=== PATIENT | female | born 1965 | race Caucasian/White ===

== ENCOUNTER 2018-11-23 12:50 | Outpatient (CLI) | payer BC ==
--- NOTE | 2018-11-24 11:55 | MMO ---
Bilateral MAMMO Bilat Screen [facility]. CLINICAL HISTORY: Patient is 53 years old and is seen for screening. The patient has the following family history of breast cancer: mother, 60-65. The patient has no personal history of cancer. VIEWS: The views performed were: bilateral craniocaudal with tomosynthesis and bilateral mediolateral oblique with tomosynthesis. FILMS COMPARED: The present examination has been compared to prior imaging studies performed at [facility] on 11/21/2012, 02/27/2014, 01/13/2016 and 04/05/2017, and at [facility] on 01/19/2010. MAMMOGRAM FINDINGS: The breasts are extremely dense, which may lower the sensitivity of mammography. There are stable benign appearing calcifications seen in both breasts. There are no suspicious masses, suspicious calcifications, or new areas of architectural distortion. IMPRESSION: THERE IS NO MAMMOGRAPHIC EVIDENCE OF MALIGNANCY. A ROUTINE FOLLOW-UP MAMMOGRAM IN 1 YEAR IS RECOMMENDED. THE RESULTS OF THIS EXAM WERE SENT TO THE PATIENT. ACR BI-RADS Category 2 - Benign finding MAMMOGRAPHY NOTE: 1. A negative mammogram report should not delay a biopsy if a dominant of clinically suspicious mass is present. 2. Approximately 10% to 15% of breast cancers are not detected by mammography. 3. Adenosis and dense breasts may obscure an underlying neoplasm.
== END 2018-11-23 12:51 | disposition home or self-care (01) ==
LOC: BICMAMMO 12:50
PROVIDERS: ATTEND Nurse Practitioner Family
DX: Z12.31 Encounter for screening mammogram for malignant neoplasm of breast (principal); Z80.3 Family history of malignant neoplasm of breast
CPT/HCPCS: 77063; 77067

== ENCOUNTER 2020-03-18 13:09 | Outpatient (CLI) | payer BC ==
--- NOTE | 2020-03-18 13:32 | MMO ---
Bilateral MAMMO Bilat Screen [facility]. CLINICAL HISTORY: Patient is 54 years old and is seen for screening. The patient has the following family history of breast cancer: mother, 60-65. The patient has no personal history of cancer. VIEWS: The views performed were: bilateral craniocaudal with tomosynthesis and bilateral mediolateral oblique with tomosynthesis. FILMS COMPARED: The present examination has been compared to prior imaging studies performed at [facility] on 02/27/2014, 01/13/2016, 04/05/2017 and 11/23/2018. This study has been interpreted with the assistance of computer-aided detection. MAMMOGRAM FINDINGS: The breasts are heterogeneously dense, which could obscure a lesion on mammography. There are stable benign appearing calcifications seen in both breasts. There are no suspicious masses, suspicious calcifications, or new areas of architectural distortion. IMPRESSION: THERE IS NO MAMMOGRAPHIC EVIDENCE OF MALIGNANCY. A ROUTINE FOLLOW-UP MAMMOGRAM IN 1 YEAR IS RECOMMENDED. THE RESULTS OF THIS EXAM WERE SENT TO THE PATIENT. ACR BI-RADS Category 2 - Benign finding MAMMOGRAPHY NOTE: 1. A negative mammogram report should not delay a biopsy if a dominant of clinically suspicious mass is present. 2. Approximately 10% to 15% of breast cancers are not detected by mammography. 3. Adenosis and dense breasts may obscure an underlying neoplasm. Reported by: RAMON HERNANDEZ MD Electonically Signed: [id number]
== END 2020-03-18 13:10 | disposition home or self-care (01) ==
LOC: BICMAMMO 13:09
PROVIDERS: ATTEND Nurse Practitioner Family
DX: Z12.31 Encounter for screening mammogram for malignant neoplasm of breast (principal); Z80.3 Family history of malignant neoplasm of breast
CPT/HCPCS: 77063; 77067

== ENCOUNTER 2022-03-03 09:32 | Inpatient (IN) | payer BC ==
[~2022-03-03 09:32] MED LIST: ISOVUE-370 76%-LOCM 1 ML ONE
[2022-03-03 10:09] LABS: Hemoglobin 8.8 g/dL (12.0-16.0); Mean Corpuscular HGB CONC 28.7 g/dL (32.0-36.0); Mean Corpuscular Hemoglobin 21.6 pg (27.0-31.0); Mean Corpuscular Volume 75.3 fL (78.0-98.0); Mean Platelet Volume 11.3 fL (7.4-10.4); Platelet Count 395 thou/uL (130-400); RBC Distribution Width 26.1 % (11.5-14.5); Red Blood Cell (RBC) Count 4.06 mill/uL (4.20-5.40); White Blood Cell (WBC) Count 20.7 thou/uL (4.8-10.8)
[2022-03-03] MEDS ORDERED: Acetaminophen 500 MG TAB ONE (10:11)
[2022-03-03 10:24] LABS: ALT (SGPT) 11 U/L (8-55); AST (SGOT) 13 U/L (5-34); Albumin 3.9 g/dL (3.5-5.0); Alkaline Phosphatase 120 U/L (40-110); Anion Gap 14 mmol/L (10-20); BUN (Urea Nitrogen) 13 mg/dL (9.8-20.1); Bilirubin, Total 0.7 mg/dL (0.2-1.2); Calc. Creatinine Clearance 0 mL/min (70-130); Calcium 9.5 mg/dL (7.8-10.44); Carbon Dioxide 23 mmol/L (22-29); Chloride 97 mmol/L (98-107); Estimated GFR 101; Globulin 3.7 g/dL (2.4-3.5); Glucose 119 mg/dL (70-105); Lipase 10 U/L (8-78); Potassium 4.4 mmol/L (3.5-5.1); Protein, Total 7.6 g/dL (6.0-8.3); Sodium 130 mmol/L (136-145)
[2022-03-03 10:35] LABS: Band 11 % (5-11); Hypochromia SLIGHT = 6-15 cells (100X) (0-5/hpf); Lymphocytes 10 % (21-51); MDiff Complete? YES; Microcytosis SLIGHT = 6-15 cells (100X) (0-5/hpf); Monocytes 7 % (0-10); Neutrophil 72 % (42-75); Ovalocytes SLIGHT = 2-5 cells (100X) (0-1/hpf); Platelet Morphology Comment Appears Adequate; Polychromasia SLIGHT = 2-3 cells (100X) (0-2/hpf)
[2022-03-03] MEDS ORDERED: Morphine 4 MG/ML VIAL ONE (10:41)
[2022-03-03] MEDS ORDERED: Piperacillin/Tazobactam 4.5 GM VIAL ONE (10:48)
[2022-03-03 12:28] LABS: SARS-CoV-2 NAA Rapid Test Not Detected (NotDetected)
[2022-03-03] MEDS ORDERED: Cyclobenzaprine 10 MG TAB PO PRN (13:13)
[2022-03-03] MEDS ORDERED: traMADol HCl 50 MG TAB PO PRN (13:16)
[2022-03-03 14:41] VITALS: BMI 26.6
[2022-03-03] MEDS: Sodium Chloride 0.9% 1,000 ML IV SCH (15:09)
[2022-03-03] MEDS: Acetaminophen 325 MG TAB PO SCH ×2 (15:27→22:23)
[2022-03-03] MEDS ORDERED: Morphine 2 MG/ML VIAL SLOW IVP PRN (15:41)
[2022-03-03] MEDS ORDERED: Morphine 2 MG/ML VIAL SLOW IVP SCH (16:00)
[2022-03-03] MEDS ORDERED: Piperacillin/Tazobactam 3.375 GM VIAL ONE ×2 (17:18→20:13)
[2022-03-03] MEDS ORDERED: Sodium Chloride 0.9% 0 ML ONE (17:18)
[2022-03-03] MEDS ORDERED: fentaNYL Citrate/PF 100 MCG/2 ML SYRINGE ONE (17:51)
[2022-03-03] MEDS ORDERED: Midazolam HCl 2 mg/2 ml Vial ONE (17:51)
[2022-03-03] MEDS ORDERED: Acyclovir 400 mg Tablet PO PRN (18:28)
[2022-03-03] MEDS ORDERED: Gabapentin 100 MG CAP PO PRN (18:28)
[2022-03-03] MEDS ORDERED: Morphine 2 MG/ML VIAL ONE ×3 (18:29→20:22)
[2022-03-03] MEDS ORDERED: Sodium Chloride 0.9% 100 ML ONE (20:13)
[2022-03-03] MEDS ORDERED: Zolpidem Tartrate 5 MG TAB PO SCH (21:00)
[2022-03-03] MEDS ORDERED: Senokot S 8.6-50 MG TAB PO SCH (21:00)
[2022-03-03] MEDS ORDERED: Bupivacaine 0.25% HCL 30 ML VIAL ONE (21:36)
[2022-03-03] MEDS ORDERED: Lidocaine 1% w/Epinephrine 1:100K 20 ML VIAL ONE (21:36)
[2022-03-03] MEDS ORDERED: Dexamethasone 20 MG/5 ML VIAL ONE (21:50)
[2022-03-03] MEDS ORDERED: Lidocaine 1% PF 5 ML VIAL ONE (21:50)
[2022-03-03] MEDS ORDERED: Ondansetron PF 4 MG/2 ML Vial ONE (21:50)
[2022-03-03] MEDS ORDERED: PROPOFOL 200 MG/20 ML VIAL ONE (21:50)
[2022-03-03] MEDS ORDERED: Glycopyrrolate 0.2 MG/ML 5 ML SYRINGE ONE (21:50)
[2022-03-03] MEDS ORDERED: Ketorolac Tromethamine 30 MG/ML VIAL ONE (21:50)
[2022-03-03] MEDS ORDERED: Rocuronium Bromide 10 MG/ML (10ML VIAL) ONE (21:50)
[2022-03-03] MEDS ORDERED: HYDROmorphone 2 MG/ML VIAL ONE (22:49)
[2022-03-03] MEDS ORDERED: HYDROmorphone 2 MG/ML VIAL SLOW IVP PRN (23:13)
[2022-03-04] MEDS: traMADol HCl 50 MG TAB PO SCH ×4 (00:04→17:43)
[2022-03-04] MEDS: Sodium Chloride 0.9% 1,000 ML IV SCH ×2 (00:06→05:53)
[2022-03-04] MEDS: Acetaminophen 500 MG TAB PO SCH ×4 (01:50→15:05)
[2022-03-04] MEDS: Piperacillin/Tazobactam 3.375 GM in Sodium Chloride 0.9% 100 ML IVPB SCH ×2 (01:50→12:33)
[2022-03-04 06:34] LABS: #Lymphocytes 0.8 thou/uL (1.20-3.40); #Monocytes 0.4 thou/uL (0.11-0.59); #Neutrophils 11.3 thou/uL (1.40-6.50); %Basophils 0.3 % (0.0-1.0); %Eosinophils 0.1 % (0.0-10.0); %Lymphocytes 6.1 % (21.0-51.0); %Monocytes 3.4 % (0.0-10.0); %Neutrophils 90.2 % (42.0-75.0); Hemoglobin 7.6 g/dL (12.0-16.0); Mean Corpuscular HGB CONC 28.2 g/dL (32.0-36.0); Mean Platelet Volume 10.4 fL (7.4-10.4); Platelet Count 330 thou/uL (130-400); RBC Distribution Width 25.4 % (11.5-14.5); Red Blood Cell (RBC) Count 3.44 mill/uL (4.20-5.40); White Blood Cell (WBC) Count 12.5 thou/uL (4.8-10.8)
[2022-03-04] MEDS ORDERED: QUEtiapine Fumarate ER 50 MG TAB PO SCH (09:00)
[2022-03-04] MEDS ORDERED: Senokot S 8.6-50 MG TAB PO SCH (09:00)
[2022-03-04] MEDS ORDERED: Ferrous Sulfate 325 MG TAB PO SCH (09:00)
[2022-03-04] MEDS ORDERED: Ascorbic Acid 500 mg Chewable Tablet PO SCH (09:00)
[2022-03-04] MEDS ORDERED: Enoxaparin Sodium 40 MG/0.4 ML SYRINGE SC SCH (09:00)
[2022-03-04] MEDS ORDERED: Bupropion 150 MG XL TAB PO SCH (09:00)
[2022-03-04] MEDS ORDERED: [UNRECOGNIZED DRUG - OTHER] PO SCH (09:00)
[2022-03-04] MEDS ORDERED: Cholecalciferol (Vitamin D3) 400 UNITS TAB PO SCH (09:00)
[2022-03-04] MEDS ORDERED: Venlafaxine HCl XR 150 MG CAP PO SCH (09:00)
[2022-03-04] MEDS ORDERED: Escitalopram Oxalate 10 mg Tablet PO SCH (09:00)
[2022-03-04] MEDS ORDERED: CYANOCOBALAMIN PO SCH (09:00)
[2022-03-04] MEDS ORDERED: FOLIC ACID PO SCH (09:00)
[2022-03-04] MEDS ORDERED: Polyethylene Glycol 3350 17 GM Packet PO SCH ×2 (09:00)
[2022-03-04 09:48] LABS: Anisocytosis MODERATE=16-30 cells (100X) (0-5/hpf); Hypochromia SLIGHT = 6-15 cells (100X) (0-5/hpf); MDiff Complete? YES; Platelet Morphology Comment Appears Adequate; Polychromasia SLIGHT = 2-3 cells (100X) (0-2/hpf)
[2022-03-04] MEDS ORDERED: Ondansetron ODT 4 MG TAB PO PRN (10:23)
[2022-03-04] MEDS ORDERED: Promethazine 25 MG TAB PO PRN (10:26)
[2022-03-04 12:36] VITALS: TEMP 97.6
[2022-03-04 16:21] VITALS: BP 124/65
[2022-03-04] MEDS ORDERED: Amoxicillin/Potassium Clav 875 MG TAB PO SCH (21:00)
== END 2022-03-04 18:27 | disposition home or self-care (01) | DRG 853 ==
LOC: ERS 09:32 → SURG A 12:11
PROVIDERS: ADMIT Student in an Organized Health Care Education/Training Program; ATTEND Surgery
PROC: 0DTJ4ZZ Resection of Appendix, Percutaneous Endoscopic Approach (ICD-10-PCS; principal; 2022-03-03)
PROC: 3E03329 Introduction of Other Anti-infective into Peripheral Vein, Percutaneous Approach (ICD-10-PCS; 2022-03-03)
DX: A41.9 Sepsis, unspecified organism (principal); K35.33 Acute appendicitis with perforation, localized peritonitis, and gangrene, with abscess; Z20.822 Contact with and (suspected) exposure to COVID-19; F32.A Depression, unspecified; F17.210 Nicotine dependence, cigarettes, uncomplicated; Z98.1 Arthrodesis status; Z79.899 Other long term (current) drug therapy
CPT/HCPCS: 36415; 74177; 80053; 83605; 83690; 84484; 85025; 87040; 87086; 88304; 93005; J1100; J1170; J1650; J1885; J2250; J2270; J2405; J2543; J2704; J2710; J3490; J7050; Q9966; S0020; U0002

== ENCOUNTER 2025-07-08 14:33 | Outpatient (CLI) | payer OTHER | END 2025-07-08 14:34 | disposition home or self-care (01) | LOC: BICRAD 14:33 | PROVIDERS: ATTEND Family Medicine | DX: M54.50 Low back pain, unspecified (principal); M46.1 Sacroiliitis, not elsewhere classified; M40.56 Lordosis, unspecified, lumbar region; M47.816 Spondylosis without myelopathy or radiculopathy, lumbar region; M47.817 Spondylosis without myelopathy or radiculopathy, lumbosacral region; Z98.1 Arthrodesis status | CPT/HCPCS: 72100; 72190 ==